=== PATIENT | female | born 1990 | race Caucasian/White ===

== ENCOUNTER → 2017-07-29 | Outpatient (CLI) | payer OTHER ==
[2017-07-29 09:34] LABS: BASO % 0.6 %; BASO ABS # 0.02 K/uL (0-0.2); EOS % 5.6 %; EOS ABS # 0.19 K/uL (0-0.5); HEMATOCRIT 39.3 % (37-47); HEMOGLOBIN 12.8 g/dL (12.0-16.0); LYMPH ABS # 1.25 K/uL (1.2-3.4); MEAN CELL VOLUME 91.8 fL (80-100); MEAN CORPUSCULAR HEMOGLOBIN 29.9 pg (25-34); MEAN CORPUSCULAR HGB CONC 32.6 g/dl (32-36); MONO % 8.6 %; MONO ABS # 0.29 K/uL (0.11-0.59); NEUT % 48.2 %; NEUT ABS # 1.63 K/uL (1.4-6.5); PLATELET COUNT 200 K/uL (130-400); RED CELL DISTRIBUTION WIDTH CV 12.4 % (11.5-14.5); RED CELL DISTRIBUTION WIDTH SD 41.7 fL (36.4-46.3); WHITE BLOOD COUNT 3.38 K/uL (4.8-10.8)
[2017-07-29 10:17] LABS: ALBUMIN 3.8 gm/dl (3.4-5.0); ALT/SGPT 31 U/L (12-78); BLOOD UREA NITROGEN 12 mg/dl (7-18); CARBON DIOXIDE 29 mmol/L (21-32); CREATININE 0.72 mg/dl (0.60-1.20); GLUCOSE 90 mg/dl (70-99); LIPASE 112 U/L (73-393); POTASSIUM 3.8 mmol/L (3.5-5.1); SODIUM 138 mmol/L (136-145)
[2017-07-29 10:20] LABS: ALKALINE PHOSPHATASE 53 U/L (45-117); AST/SGOT 12 U/L (15-37); TOTAL PROTEIN 6.8 gm/dl (6.4-8.2)
== END | disposition home or self-care (01) ==
LOC: C.LAB1850 07:01
PROVIDERS: ATTEND Nurse Practitioner Family
DX: R10.9 Unspecified abdominal pain (principal)